=== PATIENT | male | born 1990 | race Caucasian/White ===

== ENCOUNTER 2017-01-17 20:26 | Emergency (ER) | payer BC ==
[2017-01-17 20:28] VITALS: BP 135/86
--- NOTE | 2017-01-17 21:39 | UC ---
Complaint Male HPI - HPI Summary HPI Summary: NO SYMPTOMS, NO KNOWN STD CONTACTS. WITH NEW PARTNER WITH NO KNOWN STD SYMPTOMS. WOULD LIK E ROUTINE STD TESTING - History of Current Complaint Chief Complaint: UCGU Stated Complaint: STD TESTING Time Seen by Provider: 01/17/17 21:12 Hx Obtained From: Patient Onset/Duration: Resolved Severity Currently: None Location: None Associated Signs And Symptoms: Positive: Negative. Negative: Back Pain, Fever, Hematuria, Dysuria, Constipation, Blood in Stool, Rectal Pain, Appetite, Nausea , Vomiting(# Of Episodes =), Penile Swelling, Penile Discharge - Allergies/Home Medications Allergies/Adverse Reactions: Allergies Allergy/AdvReac Type Severity Reaction Status Date / Time No Known Allergies Allergy Verified 01/17/17 20:28 PMH/Surg Hx/FS Hx/Imm Hx Previously Healthy: Yes Other History Of: Negative For: HIV, Hepatitis B, Hepatitis C, Anticoagulant Therapy - Surgical History Surgical History: Yes Surgery Procedure, Year, and Place: ORAL SURGERY - Family History Known Family History: Positive: None Negative: Cardiac Disease, Hypertension - Social History Occupation: Employed Full-time Lives: With Family Alcohol Use: Occasionally Substance Use Type: None Smoking Status (MU): Former Smoker Type: Cigarettes Amount Used/How Often: 5-8 cigs/day Length of Time of Smoking/Using Tobacco: 4 Have You Smoked in the Last Year: Yes Household Exposure Type: Cigarettes Review of Systems Constitutional: Negative Skin: Negative Eyes: Negative ENT: Negative Respiratory: Negative Cardiovascular: Negative Gastrointestinal: Negative Genitourinary: Negative Motor: Negative Neurovascular: Negative Musculoskeletal: Negative Neurological: Negative Psychological: Negative All Other Systems Reviewed And Are Negative: Yes Physical Exam Triage Information Reviewed: Yes Appearance: Well-Appearing, No Pain Distress, Well-Nourished Vital Signs: Initial Vital Signs Temp 98.1 F 01/17/17 20:27 Pulse 90 01/17/17 20:27 Resp 16 01/17/17 20:27 BP 135/86 01/17/17 20:27 Pulse Ox 100 01/17/17 20:27 Vital Signs Reviewed: Yes Eye Exam: Normal ENT Exam: Normal Dental Exam: Normal Neck exam: Normal Neck: Positive: Supple, Nontender Respiratory Exam: Normal Cardiovascular Exam: Normal Cardiovascular: Positive: RRR Abdominal Exam: Normal Musculoskeletal Exam: Normal Neurological Exam: Normal Psychological Exam: Normal Skin Exam: Normal Complaint Male Course/Dx - Differential Dx/Diagnosis Differential Diagnosis/HQI/PQRI: Other - STD Provider Diagnoses: NORMAL EXAM; AYSYMPTOMATIC ROUTINE STD TESTING Discharge - Discharge Plan Condition: Stable Disposition: HOME Patient Education Materials: Sexually Transmitted Diseases (ED) Referrals: [facility] [Outside] Gabriele Addison MD [Primary Care Provider] - Additional Instructions: TODAY YOU WERE INTERESTED IN ROUTINE STD TESTING AND HAD NO SYMPTOMS AND NO KNOWN CONTACTS. PLEASE RETURN IF YOUR TEST RESULTS ARE POSITIVE FOR IMPORTANT ANTIBIOTIC TREATMENT.
== END 2017-01-17 21:56 | disposition home or self-care (01) ==
LOC: UCEAST 20:26
DX: Z00.00 Encounter for general adult medical examination without abnormal findings (principal); Z11.3 Encounter for screening for infections with a predominantly sexual mode of transmission; Z87.891 Personal history of nicotine dependence
CPT/HCPCS: 36415; 86703; 87491; 87591; 99211; G0463

== ENCOUNTER 2017-11-07 12:01 | Emergency (ER) | payer SELFPAY ==
--- NOTE | 2017-11-07 12:19 | UC ---
Laceration HPI - HPI Summary HPI Summary: 27 y/o WM presents with laceration just lateral to left eye. He tells me that he was in the shower this morning and was "messing around with the body wash". He dropped some on the bathtub and then stepped on it - slipped and hit the area against the side of the bathtub. No LOC. No headache or dizziness or visual changes. Thinks last tetanus was about 10 years ago. - History Of Current Complaint Stated Complaint: FACIAL INJURY Time Seen by Provider: 11/07/17 12:19 Hx Obtained From: Patient Laceration Location: Face Mechanism Of Injury: Blunt Trauma Onset/Duration: Sudden Onset Severity: Mild Pain Intensity: 2 Pain Scale Used: 0-10 Numeric - Allergies/Home Medications Allergies/Adverse Reactions: Allergies Allergy/AdvReac Type Severity Reaction Status Date / Time No Known Allergies Allergy Verified 01/17/17 20:28 PMH/Surg Hx/FS Hx/Imm Hx - Additional Past Medical History Additional PMH: None Previously Healthy: Yes Other History Of: Negative For: HIV, Hepatitis B, Hepatitis C, Anticoagulant Therapy - Surgical History Surgical History: Yes Surgery Procedure, Year, and Place: ORAL SURGERY - Family History Known Family History: Positive: None Negative: Cardiac Disease, Hypertension - Social History Occupation: Employed Full-time Lives: With Family Alcohol Use: Occasionally Substance Use Type: None Smoking Status (MU): Former Smoker Type: Cigarettes Amount Used/How Often: 5-8 cigs/day Length of Time of Smoking/Using Tobacco: 4 Have You Smoked in the Last Year: Yes Household Exposure Type: Cigarettes Review of Systems Constitutional: Negative Skin: Other - Laceration left temporal region Eyes: Negative Respiratory: Negative Cardiovascular: Negative Neurovascular: Negative Musculoskeletal: Negative Neurological: Negative Psychological: Negative All Other Systems Reviewed And Are Negative: Yes Physical Exam - Summary Physical Exam Summary: GENERAL: NAD. WDWN. No pain distress. SKIN: 2.5cm vertical linear laceration to left temporal region on the lateral aspect of the left orbit with subcutaneous exposed tissue. No FB or bone appreciated. HEENT: Head: AT/NC other than above Eyes: PERRLA. EOM intact. Ears: Hearing grossly normal. TMs intact, no bulging, erythema, or edema. NECK: Supple. Nontender. No lymphadenopathy. CHEST: CTAB. No r/r/w. No accessory muscle use. Breathing comfortably and in no distress. CV: RRR. Without m/r/g. Pulses intact. Brisk cap refill. NEURO: A&Ox3. CN II-XII grossly intact. Vurios-pr-txzy are intact. Gait with normal base. Normal speech. No facial drooping. PSYCH: Age appropriate behavior. Triage Information Reviewed: Yes Laceration Repair - Laceration Repair 1 Description: Linear Laceration Size After Repair: Length (cm) - 2.5 Modified For Repair: No Type Injection: Local Anesthesia Used: 2.0% Lido Irrigation With Pressure Irrigation Device: Yes Closure Material: Sutures - SIX 6-0 Closure Method: Single Layer Suture Of: Skin Suture Type: Nylon Laceration Course/Dx - Course/Dx Course Of Treatment: A time out was performed, witnessed, and signed. The area was irrigated with 500mL sterile saline. 4mL of 2% lidocaine without epi was administered and good anesthetization was achieved. In the usual sterile fashion , SIX 6-0 nylon sutures were placed. The wound was bandaged with telfa. Pt tolerated procedure well. tdap was updated today - Differential Dx - Laceration/Wound Provider Diagnoses: 2.5cm laceration left face Discharge - Sign-Out/Discharge Documenting (check all that apply): Discharge - Discharge Plan Condition: Stable Disposition: HOME Patient Education Materials: Care For Your Stitches (DC), Laceration (DC) Referrals: Gabriele Addison MD [Primary Care Provider] - Additional Instructions: 1) Please keep the area bandaged, clean, dry, and intact for the next 24hours. 2) If you develop a fever, colored or thick discharge, increased pain or swelling - please call your PCP or go to the ED. 3) Please return in 4-5 days to have your SIX sutures removed. - Billing Disposition and Condition Condition: STABLE Disposition: HOME
[2017-11-07] MEDS ORDERED: Lidocaine 2% PF * 5 ML VIAL INJ ONE (12:22)
[2017-11-07 12:24] VITALS: BP 132/91
[2017-11-07] MEDS ORDERED: Tetan/Diph/Pertus SYR(Tdap)* 0.5 ML SYR(BOOSTRIX) use SYR IM ONE (13:10)
== END 2017-11-07 13:24 | disposition home or self-care (01) ==
LOC: UCEAST 12:01
DX: S01.81XA Laceration without foreign body of other part of head, initial encounter (principal); W01.198A Fall on same level from slipping, tripping and stumbling with subsequent striking against other object, initial encounter; Y93.E1 Activity, personal bathing and showering; Y92.002 Bathroom of unspecified non-institutional (private) residence as the place of occurrence of the external cause; Z23 Encounter for immunization; Z87.891 Personal history of nicotine dependence
CPT/HCPCS: 12011; 90471; 90715; 99211; G0463

== ENCOUNTER 2017-11-12 13:02 | Emergency (ER) | payer BC ==
[2017-11-12 13:15] VITALS: BP 142/96
--- NOTE | 2017-11-12 17:44 | UC ---
Ramón Rivera Angela, scribed for Kirby Rios MD on 11/12/17 at 1315 . HPI Wound/Suture Re-check - HPI Summary HPI Summary: This pt is a 27 y/o male presenting to [facility] for suture removal. Pt was seen at Urgent Care on 11/07/17 for a laceration to the corner of his left eye. He had 6 stitches placed on 11/07. He denies fever, discharge, redness, warmth. Pt is asymptomatic. Denies any PMHx. - History Of Current Complaint Stated Complaint: NEED STITICHES REMOVED Time Seen by Provider: 11/12/17 13:10 Hx Obtained From: Patient Onset/Duration: Lasting Days, Still Present Pain Intensity: 0 Pain Scale Used: 0-10 Numeric Procedure Type: laceration repair with sutures - Allergies/Home Medications Allergies/Adverse Reactions: Allergies Allergy/AdvReac Type Severity Reaction Status Date / Time No Known Allergies Allergy Verified 11/12/17 13:15 PMH/Surg Hx/FS Hx/Imm Hx - Additional Past Medical History Additional PMH: Denies any PMHx Previously Healthy: Yes Other Endocrine History: DENIES: diabetes Other Cardiovascular History: DENIES: HTN Other History Of: Negative For: HIV, Hepatitis B, Hepatitis C, Anticoagulant Therapy - Surgical History Surgical History: Yes Surgery Procedure, Year, and Place: ORAL SURGERY - Family History Known Family History: Negative: Cardiac Disease, Hypertension, Diabetes - Social History Alcohol Use: Occasionally Substance Use Type: None Smoking Status (MU): Former Smoker Type: Cigarettes Amount Used/How Often: 5-8 cigs/day Length of Time of Smoking/Using Tobacco: 4 Have You Smoked in the Last Year: Yes Household Exposure Type: Cigarettes Review of Systems Constitutional: Negative Skin: Other - stitches on left eyebrow Eyes: Negative ENT: Negative Respiratory: Negative Cardiovascular: Negative Gastrointestinal: Negative Genitourinary: Negative Motor: Negative Neurovascular: Negative Musculoskeletal: Negative Neurological: Negative Psychological: Negative Is Patient Immunocompromised?: No All Other Systems Reviewed And Are Negative: Yes Physical Exam - Summary Physical Exam Summary: VITAL SIGNS: Reviewed. GENERAL: Patient is a well-developed and nourished male who is lying comfortable in the stretcher. Patient is not in any acute respiratory distress. HEAD AND FACE: Normocephalic. Well healed laceration on the left eyebrow. No signs of infection. EYES: PERRLA, EOMI x 2. EARS: Hearing grossly intact. MOUTH: Oropharynx within normal limits. NECK: Supple, trachea is midline, no adenopathy, no JVD, no carotid bruit. CHEST: Symmetric, no tenderness at palpation LUNGS: Clear to auscultation bilaterally. No wheezing or crackles. CVS: Regular rate and rhythm, S1 and S2 present, no murmurs or gallops appreciated. ABDOMEN: Soft, non-tender. Bowel sounds are normal. No abdominal abnormal pulsations. EXTREMITIES: Full ROM in all major joints, no edema, no cyanosis or clubbing. NEURO: Alert and oriented x 3. No acute neurological deficits. Speech is normal and follows commands. SKIN: Dry and warm Triage Information Reviewed: Yes Vital Signs: Initial Vital Signs Temp 99.0 F 11/12/17 13:12 Pulse 94 11/12/17 13:12 Resp 14 11/12/17 13:12 BP 142/96 11/12/17 13:12 Pulse Ox 99 11/12/17 13:12 Vital Signs Reviewed: Yes Course/Dx - Course Course Of Treatment: This pt is a 27 y/o male presenting to [facility] for suture removal. Pt was seen at Urgent Care on 11/07/17 for a laceration to the corner of his left eye. He had 6 stitches placed on 11/07. He denies fever, discharge, redness, warmth. Pt is asymptomatic. Denies any PMHx. On exam pt has a well healed laceration on left eyebrow. There are no signs of infection. I removed 6 stitches from the left eyebrow without any complications. Pt tolerated well. Pt was instructed to return to the urgent care or go to ER immediately if he develops redness, warmth, fever, or any other new symptoms. Plan of care was discussed with the patient and pt understands and agrees. All questions were answered to patient satisfaction. There were no further complaints or concerns. Pt will be discharged to home with follow up from PCP. Pt is hemodynamically stable, alert and oriented x3. The patient was found to have increased blood pressure in UC. The patient will follow up with PCP for better control of BP. - Differential Dx - Laceration/Wound Provider Diagnoses: Stitches removal Discharge - Sign-Out/Discharge Documenting (check all that apply): Discharge - discharge to home - Discharge Plan Condition: Stable Disposition: HOME Patient Education Materials: Stitches Removal (ED) Referrals: Gabriele Addison MD [Primary Care Provider] - Additional Instructions: FOLLOW UP WITH YOUR PRIMARY CARE PROVIDER WITHIN ONE WEEK FOR HIGH BLOOD PRESSURE NOTED TODAY. RETURN TO URGENT CARE OR THE ED FOR ANY WORSENING OR NEW SYMPTOMS. The documentation as recorded by the Ramón flannery Angela accurately reflects the service I personally performed and the decisions made by , Kirby Rios MD.
== END 2017-11-12 13:22 | disposition home or self-care (01) ==
LOC: UCEAST 13:02
DX: S01.112D Laceration without foreign body of left eyelid and periocular area, subsequent encounter (principal); X58.XXXD Exposure to other specified factors, subsequent encounter; Z87.891 Personal history of nicotine dependence
CPT/HCPCS: 99211; G0463